=== PATIENT | male | born 1990 | race Two or more races ===

== ENCOUNTER 2023-04-24 18:41 | Emergency (ER) | payer MEDICAID ==
[~2023-04-24] VITALS: Ht 190.5 cm; Wt 77.3 kg
[2023-04-24 18:52] VITALS: BP 102/59; PULSE 63; RESP 18; TEMP 98.9
[2023-04-24] MEDS: IBUPROFEN 600 MG TABLET PO ONE (22:13)
[2023-04-24] MEDS: LIDOCAINE 5% TRANSDERMAL PATCH TD ONE (22:13)
[2023-04-24] MEDS: ACETAMINOPHEN 500 MG TABLET PO ONE (22:14)
[2023-04-24] MEDS ORDERED: ACET-3385 PO (22:15)
[2023-04-24] MEDS ORDERED: IBUP-1492 PO (22:15)
== END 2023-04-24 23:36 | disposition home or self-care (01) ==
LOC: EMS 18:41 → EDBD 18:41 → EMS 23:36
DX: S39.012A Strain of muscle, fascia and tendon of lower back, initial encounter (principal); V49.9XXA Car occupant (driver) (passenger) injured in unspecified traffic accident, initial encounter; Y93.89 Activity, other specified; Y92.89 Other specified places as the place of occurrence of the external cause; Y99.8 Other external cause status
CPT/HCPCS: 72131; 99284